=== PATIENT | male | born 1995 | race Caucasian/White ===

== ENCOUNTER → 2017-06-06 09:15 | Outpatient (CLI) | payer OTHER, SELFPAY ==
--- NOTE | 2017-06-06 09:24 | RAD_ITS ---
STUDY: X-RAY - LUMBAR SPINE REASON FOR EXAM: Male, 21 years old. Worsening chronic low back pain. TECHNIQUE: 3 view(s) of the lumbar spine were obtained. COMPARISON: None FINDINGS: Normal lumbar lordosis. There is no substantial scoliosis. There is a normal alignment of the vertebrae. Normal vertebral bodies and endplates. Normal disc space heights. Large amount of fecal material is seen in the colon. RAD/Lumbar Spine 2 or 3 Views IMPRESSION: Normal x-ray examination of the lumbar spine. Electronically Signed: Enrique Weir MD at 9:53 EDT Tel [phone], Service support ,
== END ==
PROVIDERS: Family Provider Pediatrics; PCP Pediatrics; Visit Provider Pediatrics
DX: M54.5 Low back pain (principal); G89.29 Other chronic pain
CPT/HCPCS: 72100